=== PATIENT | male | born 1950 | race Caucasian/White ===

== ENCOUNTER → 2024-05-29 16:18 | Outpatient (REF) | payer MEDICARE, OTHER, SELFPAY | LOC: RAD 16:18 | PROVIDERS: ATTENDING PHYSICIAN Internal Medicine | DX: R73.9 Hyperglycemia, unspecified (principal); R25.1 Tremor, unspecified; R60.0 Localized edema | CPT/HCPCS: 93970 ==

== ENCOUNTER → 2024-06-16 08:38 | Outpatient (REF) | payer MEDICARE, OTHER, SELFPAY ==
[2024-06-16 09:15] LABS: % Basophils 0.8 % (0-2); % Eosinophils 1.2 % (0-6); % Immature Granulocytes 0.2 % (0-0.5); % Lymphocytes 34.7 % (20.5-51.1); % Monocytes 6.4 % (1.7-9.3); % Neutrophils 56.7 % (42.2-75.2); Absolute Basophils 0.1 10^3/uL (0-0.2); Absolute Eosinophils 0.1 10^3/uL (0-0.7); Absolute Lymphocytes 2.2 10^3/uL (1.2-3.4); Absolute Monocytes 0.4 10^3/uL (0.1-0.6); Absolute Neutrophils 3.7 10^3/uL (1.4-6.5); Hematocrit 42.3 % (39.0-52.0); Hemoglobin 14.5 g/dL (13.0-18.0); Mean Corp Hgb Conc. 34.3 g/dL (33.0-37.0); Mean Corpuscular Hgb 31.4 pg (27.0-31.0); Mean Corpuscular Volume 91.6 fL (80.0-94.0); Mean Platelet Volume 10.3 fL (7.4-10.4); Nucleated Red Blood Cells % 0 % (-); Platelet Count 225 10^3/uL (130-400); Red Blood Cell Count 4.62 10^6/uL (4.70-6.10); Red Cell Dist. Width 12.3 % (11.5-14.5); White Blood Cell Count 6.4 10^3/uL (4.8-10.8)
[2024-06-16 09:46] LABS: ALT (SGPT) 30 U/L (0-50); AST (SGOT) 26 U/L (17-59); Albumin 4.4 g/dl (3.5-5.0); Alkaline Phosphatase 53 U/L (38-126); Blood Urea Nitrogen 23 mg/dl (9-20); Calcium 9.7 mg/dl (8.4-10.2); Carbon Dioxide 27 mmol/L (22-30); Chloride 108 mmol/L (98-107); Glucose 92 mg/dl (70-99); HDL Cholesterol 47 mg/dl; LDL Cholesterol, Calculated 139 mg/dl; Potassium 4.7 mmol/L (3.5-5.1); Sodium 143 mmol/L (135-145); Total Bilirubin 1.1 mg/dl (0.2-1.3); Total Cholesterol 211 mg/dl (50-199); Total Protein 6.7 g/dl (6.3-8.2); Triglyceride 127 mg/dl (10-149); Very Low Density Lipoprotein 25 mg/dl (0-30); eGFR > 60.00
[2024-06-16 10:12] LABS: PSA, Total - Screen 4.47 ng/ml (0.0-4.0)
== END ==
LOC: REG 08:38
PROVIDERS: ATTENDING PHYSICIAN Internal Medicine
DX: R73.9 Hyperglycemia, unspecified (principal); E78.2 Mixed hyperlipidemia; E78.01 Familial hypercholesterolemia; Z12.5 Encounter for screening for malignant neoplasm of prostate; R53.83 Other fatigue
CPT/HCPCS: 36415; 80053; 80061; 84443; 85025; G0103

== ENCOUNTER 2024-09-29 14:09 | Emergency (ER) | payer MEDICARE, OTHER, SELFPAY ==
[2024-09-29 14:26] VITALS: BP 116/81
[2024-09-29 14:39] LABS: Hematocrit 40.7 % (39.0-52.0); Hemoglobin 14.3 g/dL (13.0-18.0); Mean Corp Hgb Conc. 35.1 g/dL (33.0-37.0); Mean Corpuscular Volume 88.9 fL (80.0-94.0); Nucleated Red Blood Cells % 0 % (-); Platelet Count 241 10^3/uL (130-400); Red Cell Dist. Width 12.3 % (11.5-14.5)
[2024-09-29 15:05] LABS: ALT (SGPT) 24 U/L (0-50); AST (SGOT) 26 U/L (17-59); Albumin 4.3 g/dl (3.5-5.0); Alkaline Phosphatase 49 U/L (38-126); Blood Urea Nitrogen 24 mg/dl (9-20); Calcium 10.0 mg/dl (8.4-10.2); Carbon Dioxide 23 mmol/L (22-30); Chloride 108 mmol/L (98-107); Glucose 119 mg/dl (70-99); Lipase 94 U/L (23-300); Potassium 4.1 mmol/L (3.5-5.1); Sodium 139 mmol/L (135-145); Total Protein 6.8 g/dl (6.3-8.2); eGFR > 60.00
[2024-09-29 16:53] VITALS: BP 135/78
--- NOTE | 2024-09-29 18:17 | ED.GENMED ---
History of Present Illness
General
Chief Complaint: Abdominal Pain
Source: patient
Exam Limitations: none
Time Seen by Provider: 09/29/24 18:10
Nursing documentation reviewed up to this point in time: agreed with
History of Present Illness
History of Present Illness:
74-year-old male with history of HLD, has a known left inguinal hernia scheduled for surgical repair on October 27. He reports that after performing yard work today, he experienced a significant increase in pain at the site of the hernia. The
patient describes the pain as much more intense than usual. Upon lying down and applying gentle pressure, the discomfort subsided, and the hernia reduced itself. He does not currently experience any tenderness at the site. The patient reports
regular bowel and urinary functions without issues. He has been advised to avoid straining activities and will attempt to reschedule his surgery for an earlier date due to the increased symptoms
Past History
Past History
ED Past Medical History: Hypercholesterolemia
ED Past Surgical History: Other (R inguinal Hernia repair)
Social History
Tobacco: Non-smoker
Personal:
Living: with family
Review of Systems
Review of Systems
Allergies reviewed?: Yes
All Other Systems: ROS reviewed and negative except as documented in HPI and ROS
ABD/GI: Reports abdominal pain (subsided)
Phy Exam
Physical Exam
Physical Exam:
GENERAL: No acute distress. A&Ox3.
CONSTITUTIONAL: Afebrile.
EYES: clear, conjunctivae normal
RESPIRATORY: Regular respirations, nonlabored, lungs clear.
CARDIOVASCULAR: Regular rate and rhythm, no murmurs, no rubs.
GI: Soft, nontender, normal BS, no palpable hernia.
MUSCULOSKELETAL: Moves with ease. Well perfused.
SKIN: Warm, dry, pink
PSYCH: Normal mood and affect. Well kept, interactive and appropriate
NEUROLOGIC: Awake, alert and oriented. No focal neurological deficits
Course
Orders/Labs/Results
Orders:
Orders
09/29/24 14:32
Complete Blood Count/With Diff Urgent
Comprehensive Metabolic Panel Urgent
Lipase Urgent
09/29/24 18:[address] Non Medication Order As Directed
Physician Order: Abdominal binder
Above order entered?: Yes
Abnormal Lab Results
09/29/24
14:32
RBC 4.58 L 10^6/uL
(4.70-6.10)
MCH 31.2 H pg
(27.0-31.0)
Chloride 108 H mmol/L
(98-107)
BUN 24 H mg/dl
(9-20)
Glucose 119 H mg/dl
(70-99)
09/29/24 14:32
09/29/24 14:32
Vital Signs
Initial and Last Documented VS:
Initial Vital Signs
Temp Pulse Resp BP Pulse Ox
98 F 74 19 116/81 96
09/29/24 14:26 09/29/24 14:26 09/29/24 14:26 09/29/24 14:26 09/29/24 14:26
Last Documented Vital Signs
Temp Pulse Resp BP Pulse Ox
98 F 60 18 145/75 95
09/29/24 14:26 09/29/24 18:33 09/29/24 18:33 09/29/24 18:33 09/29/24 18:33
MDM/Problems Addressed
Differential Diagnosis Includes:
hernia, strangulated/incarcerated hernia, groin strain
MDM/Problems Addressed:
74-year-old male with history of HLD, has a known left inguinal hernia scheduled for surgical repair on October 27. He reports that after performing yard work today, he experienced a significant increase in pain at the site of the hernia. The
patient describes the pain as much more intense than usual. Upon lying down and applying gentle pressure, the discomfort subsided, and the hernia reduced itself. He does not currently experience any tenderness at the site. The patient reports
regular bowel and urinary functions without issues. He has been advised to avoid straining activities and will attempt to reschedule his surgery for an earlier date due to the increased symptoms
Abdomen benign
Plan: - Advise the patient to avoid physical activities that may exacerbate the hernia.
- Attempt to reschedule surgical repair for an earlier date.
- Consider the use of an abdominal binder to provide support and pressure to the affected area.
- Patient is advised to seek medical attention if the hernia becomes irreducible or if symptoms of strangulation occur. Will
Pt comfortable, abdomen benign, abdominal binder applied with some relief.
Pt ambulated out with normal gait at discharge
*Pulse Oximetry
SaO2: 98
Oxygen Mode of Delivery: Room air
Patient hypoxic: not evaluated
*Critical Care Note
Total Time (30-74mins, 75-104mins- exclusive of procedures): Not Applicable
ED Attending Note
-
Portions of this chart may have been created with voice recognition software.� Occasional wrong word or��sound alike� substitutions may have occurred due to the inherent limitations of voice recognition software.
Discharge Plan
Departure
Patient Disposition: Home (Routine Discharge)
Date of Disposition: 09/29/24
Time of Disposition: 18:22
Patient with high blood pressure during this ER visit?: No
Condition: Good
Discharge Problem:
Inguinal hernia
Instructions: Groin hernias
Prescriptions:
New
oxycodone-acetaminophen 5-325 mg tablet
1 tab PO Q8H PRN (Reason: Pain) Qty: 6 0RF
No Action
atorvastatin 10 MG tablet
10 mg PO QPM
aspirin 81 MG tablet,delayed release (DR/EC)
81 mg PO Q48H
calcium polycarbophil [Fiber-Tabs] 625 MG tablet
625 mg PO DAILY
loratadine 10 MG tablet
10 mg PO DAILY
multivitamin with folic acid [Tab-A-Wesley] 1 TABLET tablet
1 tab PO DAILY
acetaminophen 325 MG tablet
650 mg PO Q4HPRN PRN (Reason: mild pain) Qty: 1 0RF
ibuprofen 200 MG tablet
400 - 600 mg PO Q6HPRN PRN (Reason: moderate pain) Qty: 1 0RF
oxycodone 5 MG tablet
5 mg PO Q4HPRN PRN (Reason: breakthrough/severe pain) Qty: 15 0RF
Referrals:
Winston Juares I., DO [Family Provider, Internal Medicine]
Abimael Bey MD [Active, Surgical] - Call in 1-3 days for appt
Activity Restrictions/Additional Instructions:
As we discussed, call Dr. Hanna's office and see if they can get you in sooner for your hernia repair.
Avoid any strenuous activity/yard work, etc.
If similar pain occurs, lay down just as you did and attempt to reduce the hernia as you described to me, if this does not work return here immediately
Interventions
Interventions:
*Risk Screen - Suicide Last Done: 09/29/24 14:26
*General Assessment Last Done: 09/29/24 14:26
*Neglect/Abuse Screening Last Done: 09/29/24 14:26
*ED- Fall Risk Assessment Last Done: 09/29/24 18:33
*Nursing Disposition Last Done: 09/29/24 18:40
RD-Cnkdyb-Pzczsnbgjl Assessment Last Done: 09/29/24 18:33
Discharge Date and Time
Discharge Date/Time: 09/29/24 18:40
Print Language: TELUGU
[2024-09-29 18:33] VITALS: BP 145/75
== END 2024-09-29 18:40 | disposition home or self-care (01) ==
LOC: EMR 14:09
PROVIDERS: Emergency Medicine; EMERGENCY PHYSICIAN Student in an Organized Health Care Education/Training Program; FAMILY PHYSICIAN Internal Medicine
DX: E78.00 Pure hypercholesterolemia, unspecified (principal)
CPT/HCPCS: 99283; 80053; 83690; 85025

== ENCOUNTER → 2024-10-13 06:07 | Outpatient (REF) | payer MEDICARE, OTHER, SELFPAY ==
[2024-10-13 09:03] LABS: Hematocrit 42.4 % (39.0-52.0); Hemoglobin 14.3 g/dL (13.0-18.0); Mean Corp Hgb Conc. 33.7 g/dL (33.0-37.0); Mean Corpuscular Volume 91.6 fL (80.0-94.0); Platelet Count 229 10^3/uL (130-400); Red Cell Dist. Width 12.5 % (11.5-14.5)
[2024-10-13 09:33] LABS: Blood Urea Nitrogen 24 mg/dl (9-20); Calcium 9.3 mg/dl (8.4-10.2); Carbon Dioxide 25 mmol/L (22-30); Chloride 110 mmol/L (98-107); Glucose 100 mg/dl (70-99); Potassium 4.9 mmol/L (3.5-5.1); Sodium 141 mmol/L (135-145); eGFR > 60.00
== END ==
LOC: SDSPAT 06:07
PROVIDERS: ATTENDING PHYSICIAN Surgery; FAMILY PHYSICIAN Internal Medicine
DX: Z01.818 Encounter for other preprocedural examination (principal)
CPT/HCPCS: 36415; 80048; 85027; 93005

== ENCOUNTER → 2024-10-27 06:00 | Day surgery (SDC) | payer MEDICARE, OTHER, SELFPAY ==
[2024-10-13 14:00] VITALS: BMI 27.3
[2024-10-27] VITALS (8 sets, daily range): BP systolic 122–146; BP diastolic 65–95; BMI 27.3
[2024-10-27] MEDS: TYLENOL 1000 MG PO (06:41)
--- NOTE | 2024-10-27 06:45 | PTCARENOTE ---
Patient has 'jock itch' per patient. Surgeon notified since it is near the area of the surgical site. Will monitor patient.
[2024-10-27] MEDS: NORMOSOL-R/PLASMALYTE-A 1000 IV (06:49)
== END | disposition home or self-care (01) ==
LOC: SDS 06:00
PROVIDERS: ATTENDING PHYSICIAN Surgery; FAMILY PHYSICIAN Internal Medicine
DX: K40.90 Unilateral inguinal hernia, without obstruction or gangrene, not specified as recurrent (principal)
CPT/HCPCS: 49650; C1781